=== PATIENT | female | born 1995 | race Caucasian/White ===

== ENCOUNTER 2017-11-25 20:08 | Emergency (ER) | payer MEDICAID ==
--- NOTE | 2017-11-25 21:47 | ED ---
GI/ HPI - HPI Summary HPI Summary: 22-year-old female presents with dysuria and vaginal pain for the past week. She's never had this before. She does not have history of UTI. She denies any lesions. She denies any fevers. She denies any abnormal vaginal discharge. She has not been sexually active for many months. She denies any nausea vomiting. She denies any diarrhea or constipation. She denies any flank pain. She admits to urgency and frequency. - History of Current Complaint Chief Complaint: EDUrogenitalProblems Time Seen by Provider: 11/25/17 20:54 Stated Complaint: UROGENITAL PROBLEMS Hx Last Menstrual Period: 1 week ago Pain Intensity: 7 - Allergy/Home Medications Allergies/Adverse Reactions: Allergies Allergy/AdvReac Type Severity Reaction Status Date / Time Ivory Soap Allergy Rash And Uncoded 11/25/17 20:28 Itching Tide Soap Allergy Rash And Uncoded 11/25/17 20:28 Itching PMH/Surg Hx/FS Hx/Imm Hx Endocrine/Hematology History: Denies: Hx Diabetes, Hx Thyroid Disease Cardiovascular History: Denies: Hx Hypertension Respiratory History: Reports: Hx Asthma Denies: Hx Chronic Obstructive Pulmonary Disease (COPD) GI History: Denies: Hx Ulcer Infectious Disease History: No Infectious Disease History: Denies: Hx Hepatitis, Hx Human Immunodeficiency Virus (HIV), History Other Infectious Disease, Traveled Outside the [place] in Last 30 Days - Family History Known Family History: Negative: Diabetes - Social History Alcohol Use: None Substance Use Type: Reports: None Smoking Status (MU): Light Every Day Tobacco Smoker Type: Cigarettes Review of Systems Negative: Fever Negative: Chest Pain Negative: Shortness Of Breath Negative: Abdominal Pain, Vomiting, Nausea Positive: discharge. Negative: flank pain All Other Systems Reviewed And Are Negative: Yes Physical Exam Triage Information Reviewed: Yes Vital Signs On Initial Exam: Initial Vitals Temp Pulse Resp BP Pulse Ox 99.4 F 108 16 121/80 98 11/25/17 20:20 11/25/17 20:20 11/25/17 20:20 11/25/17 20:20 11/25/17 20:20 Vital Signs Reviewed: Yes Appearance: Positive: Well-Appearing Skin: Positive: Warm, Dry Head/Face: Positive: Normal Head/Face Inspection Eyes: Positive: Normal, Conjunctiva Clear ENT: Positive: Pharynx normal Respiratory/Lung Sounds: Positive: Clear to Auscultation, Breath Sounds Present Cardiovascular: Positive: Normal, RRR Abdomen Description: Positive: Nontender, Soft Bowel Sounds: Positive: Present Pelvic Exam: Positive: Bimanual Exam Normal, No Cerv. Motion Tender, Lesions - genital ulcer painful to touch Musculoskeletal: Positive: Normal Neurological: Positive: Normal Psychiatric: Positive: Normal Diagnostics - Vital Signs Vital Signs Temp Pulse Resp BP Pulse Ox 11/25/17 20:20 99.4 F 108 16 121/80 98 - Laboratory Lab Statement: Any lab studies that have been ordered have been reviewed, and results considered in the medical decision making process. GIGU Course/Dx - Course Course Of Treatment: 22-year-old female presents with dysuria and vaginal pain for the past week. She's never had this before. She does not have history of UTI. She denies any lesions. She denies any fevers. She denies any abnormal vaginal discharge. She has not been sexually active for many months. She denies any nausea vomiting. She denies any diarrhea or constipation. She denies any flank pain. She admits to urgency and frequency. On exam has also on the genitals. Most consistent with HSV. We'll treat with Valtrex. Shows a UTI. We'll treat with Cipro. Told if develops fever on antibiotic after 2 days or persistent vomiting to return to ED. Patient understands agrees with plan. - Diagnoses Differential Diagnoses - Female: Herpes, STD, Urinary Tract Infection Provider Diagnoses: Genital lesion, female, UTI (urinary tract infection) Discharge - Sign-Out/Discharge Documenting (check all that apply): Discharge/Admit/Transfer - Discharge Plan Condition: Good Disposition: HOME Prescriptions: Ciprofloxacin TAB* [Cipro 500 MG TAB*] 500 mg PO BID #9 tab ValACYclovir (*) [Valtrex 1 GM(*)] 1 gm PO BID #19 tab Patient Education Materials: Genital Herpes Simplex (ED), Urinary Tract Infection in Women (ED) Referrals: No Primary Care Phys,NOPCP [Primary Care Provider] - Additional Instructions: take valacyclovir twice a day for 10 days take antibiotic twice a day for 5 days Drink plenty of fluids Take tyenlol or ibuprofen every 6 hours for pain Return to ED if develop any new or worsening symptoms - Billing Disposition and Condition Condition: GOOD Disposition: HOME
[2017-11-25 21:54] LABS: Urine Appearance Cloudy; Urine Blood 1+ (Negative); Urine Color Yellow; Urine Ketones Negative (Negative); Urine Protein 1+(30 mg/dL) (Negative); Urine Urobilinogen Negative (Negative)
[2017-11-25] MEDS ORDERED: Ciprofloxacin TAB* 500 MG PO ONE (21:55)
[2017-11-25] MEDS ORDERED: ValACYclovir (*) 1 GM TAB PO ONE (22:00)
[2017-11-25 22:10] VITALS: BP 112/63
--- NOTE | 2017-11-27 09:20 | PN ---
Progress Note - Progress Note Date of Service: 11/25/17 Note: Patient seen in the ER for 11/25/17 for pelvic pain. Vaginal cultures were obtained time. Cultures today are positive for Gardnerella and Trichomonas. Attempted to call patient at [phone] but she was not home. I left message with patient's mother to return call to the emergency department.
--- NOTE | 2017-11-28 08:36 | ED ---
Progress - Progress Note Progress Note: Patient's urine culture reveals 10-25,000 strep group B and 50-75,000 normal fredi. Pt rx'd cipro, flagyl and valcyclovir for HSV. With low counts, no further treatment necessary at this time. May stop cipro. Patient aware. Course/Dx - Course Course Of Treatment: 22-year-old female presents with dysuria and vaginal pain for the past week. She's never had this before. She does not have history of UTI. She denies any lesions. She denies any fevers. She denies any abnormal vaginal discharge. She has not been sexually active for many months. She denies any nausea vomiting. She denies any diarrhea or constipation. She denies any flank pain. She admits to urgency and frequency. On exam has also on the genitals. Most consistent with HSV. We'll treat with Valtrex. Shows a UTI. We'll treat with Cipro. Told if develops fever on antibiotic after 2 days or persistent vomiting to return to ED. Patient understands agrees with plan. - Diagnoses Provider Diagnoses: Genital lesion, female, UTI (urinary tract infection) Discharge - Sign-Out/Discharge Documenting (check all that apply): Post-Discharge Follow Up - Discharge Plan Condition: Good Disposition: HOME Prescriptions: Ciprofloxacin TAB* [Cipro 500 MG TAB*] 500 mg PO BID #9 tab metroNIDAZOLE [Flagyl 500 MG TAB] 500 mg PO BID #20 tab ValACYclovir (*) [Valtrex 1 GM(*)] 1 gm PO BID #19 tab Patient Education Materials: Genital Herpes Simplex (ED), Urinary Tract Infection in Women (ED) Referrals: No Primary Care Phys,NOPCP [Primary Care Provider] - Additional Instructions: take valacyclovir twice a day for 10 days take antibiotic twice a day for 5 days Drink plenty of fluids Take tyenlol or ibuprofen every 6 hours for pain Return to ED if develop any new or worsening symptoms - Billing Disposition and Condition Condition: GOOD Disposition: HOME
== END 2017-11-25 22:10 | disposition home or self-care (01) ==
LOC: ED 20:08
DX: N39.0 Urinary tract infection, site not specified (principal); R30.0 Dysuria; N90.89 Other specified noninflammatory disorders of vulva and perineum
CPT/HCPCS: 81003; 81015; 87077; 87086; 87480; 87491; 87510; 87529; 87591; 87660; 87798; 99282; A9270-GY

== ENCOUNTER 2019-04-06 13:51 | Emergency (ER) | payer OTHER ==
--- NOTE | 2019-04-06 14:52 | ED ---
Back Pain - HPI Summary HPI Summary: 23 year old F presenting to [facility] complains of back pain located at her bilateral flanks and at both sides of her upper back rated 10/10 in severity since Monday04/03/19. No trauma/injury to the back. Patient states she was at home when the pain started. Patient states she was unable to get out of bed today. Patient denies urinary and fecal dysfunction. Symptoms aggravated by walking and movement. Symptoms alleviated by taking a hot bath, which provided relief for one hour. Patient states she took Tylenol with no relief. Patient states she is 7.5 months and due on June 13, 2019. Patient states that she has not had any complications during this . /A0. Patient states she lives with her boyfriend and step daughter. 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 - History of Current Complaint Chief Complaint: EDBackInjuryPain Stated Complaint: BACK PAIN , Time Seen by Provider: 04/06/19 14:42 Hx Obtained From: Patient Onset/Duration: Lasting Days - 3, Still Present Onset/Duration: Started Days Ago - 3, Still Present Timing: Constant Severity Currently: Severe Pain Intensity: 10 Pain Scale Used: 0-10 Numeric Aggravating Symptom(s): Movement, Walking Alleviating Symptom(s): Nothing Associated Signs And Symptoms: Positive: Negative - urinary/fecal dysfunction - Allergies/Home Medications Allergies/Adverse Reactions: Allergies Allergy/AdvReac Type Severity Reaction Status Date / Time Ivory Soap Allergy Rash And Uncoded 04/06/19 13:57 Itching Tide Soap Allergy Rash And Uncoded 04/06/19 13:57 Itching PMH/Surg Hx/FS Hx/Imm Hx Endocrine/Hematology History: Denies: Hx Diabetes Cardiovascular History: Denies: Hx Hypertension Respiratory History: Reports: Hx Asthma Denies: Hx Chronic Obstructive Pulmonary Disease (COPD) Infectious Disease History: No Infectious Disease History: Denies: Hx Hepatitis, Hx Human Immunodeficiency Virus (HIV), History Other Infectious Disease, Traveled Outside the in Last 30 Days - Family History Known Family History: Negative: Diabetes - Social History Alcohol Use: None Hx Substance Use: No Substance Use Type: Reports: None Hx Tobacco Use: Yes Smoking Status (MU): Light Every Day Tobacco Smoker Type: Cigarettes Review of Systems Gastrointestinal: Negative - fecal dysfunction Genitourinary: Negative - urinary dysfunction Positive: Other - back pain located at her bilateral flanks and at both sides of her upper back All Other Systems Reviewed And Are Negative: Yes Physical Exam - Summary Physical Exam Summary: VITAL SIGNS: Reviewed. GENERAL: Patient is a well-developed and nourished FEMALE who is lying comfortable in the stretcher. Patient is not in any acute respiratory distress. HEAD AND FACE: No signs of trauma. No ecchymosis, hematomas or skull depressions. No sinus tenderness. EYES: PERRLA, EOMI x 2, No injected conjunctiva, no nystagmus. EARS: Hearing grossly intact. Ear canals and tympanic membranes are within normal limits. MOUTH: Oropharynx within normal limits. NECK: Supple, trachea is midline, no adenopathy, no JVD, no carotid bruit, no c- spine tenderness, neck with full ROM. CHEST: Symmetric, no tenderness at palpation. LUNGS: Clear to auscultation bilaterally. No wheezing or crackles. CVS: Regular rate and rhythm, S1 and S2 present, no murmurs or gallops appreciated. ABDOMEN: Soft, non-tender. No signs of distention. No rebound, no guarding, and no masses palpated. Bowel sounds are normal. BACK: Paraspinal muscle tenderness in T spine and proximal L spine EXTREMITIES: FROM in all major joints, no edema, no cyanosis or clubbing. NEURO: Alert and oriented x 3. No acute neurological deficits. Speech is normal and follows commands. SKIN: Dry and warm. Triage Information Reviewed: Yes Vital Signs On Initial Exam: Initial Vitals Temp Pulse Resp BP Pulse Ox 98.8 F 122 16 136/85 96 04/06/19 13:53 04/06/19 13:53 04/06/19 13:53 04/06/19 13:53 04/06/19 13:53 Vital Signs Reviewed: Yes Diagnostics - Vital Signs Vital Signs Temp Pulse Resp BP Pulse Ox 04/06/19 13:53 98.8 F 122 16 136/85 96 - Laboratory Lab Statement: Any lab studies that have been ordered have been reviewed, and results considered in the medical decision making process. Back Pain Course/Dx - Course Assessment/Plan: The patient is 7.5 months , therefore, I am unable to obtain any x-rays. The patient doesnt have any urinary or fecal dysfunction. The tenderness is only along the paraspinal muscle area, there is no vertebral tenderness. It looks like it is more muscular skeletal pain. The patient was given one Tylenol/[place] and the symptoms improved. She requests an excuse from work for the next 3 days. The patient is ambulating, she is able to bend without significant discomfort. The patient denies any abdominal cramping, denies any vaginal discharge, and denies any vaginal bleeding. The patient denies any urinary or fecal dysfunction. Therefore, the patient will be discharged home with follow-up with OB. She was recommended to return to the emergency department if she develops any other symptoms. The patient will be given Tylenol. - Diagnoses Provider Diagnoses: Back pain Discharge ED - Sign-Out/Discharge Documenting (check all that apply): Patient Departure - Discharge Patient Received Moderate/Deep Sedation with Procedure: No - Discharge Plan Condition: Stable Disposition: HOME Patient Education Materials: Back Pain (ED) Forms: *Work Release Referrals: [facility] [Outside] - 3 Days Additional Instructions: Use warm compresses. Use over the counter patches. Follow up with your primary care provider in 3 days. Return to the Emergency Department for new or worsening symptoms. - Billing Disposition and Condition Condition: STABLE Disposition: Home - Attestation Statements Document Initiated by Scribe: Yes Documenting Scribe: Magdalene Noriega Provider For Whom Raman is Documenting (Include Credential): Clifton Francois MD Scribe Attestation: Magdalene Mark, scribed for Clifton Francois MD on 04/06/19 at 1849. Scribe Documentation Reviewed: Yes Provider Attestation: The documentation as recorded by the Magdalene montes accurately reflects the service I personally performed and the decisions made by me, Clifton Francois MD Status of Scribe Document: Viewed
[2019-04-06 15:24] VITALS: BP 116/71
== END 2019-04-06 15:23 | disposition home or self-care (01) ==
LOC: ED 13:51
DX: M54.9 Dorsalgia, unspecified (principal); J45.909 Unspecified asthma, uncomplicated; F17.210 Nicotine dependence, cigarettes, uncomplicated
CPT/HCPCS: 99282

== ENCOUNTER 2019-06-12 19:48 | Inpatient (IN) | payer OTHER ==
[2019-06-12] MEDS ORDERED: Glycerin ADULT SUPP PR PRN (19:49)
[2019-06-12] MEDS ORDERED: Witch Hazel PAD* JAR TOPICAL PRN (19:49)
[2019-06-12] MEDS ORDERED: Dibucaine 1% 28.35 GM TUBE PR PRN (19:49)
[2019-06-12] MEDS ORDERED: Acetaminophen TAB* 325 MG PO PRN (19:49)
--- NOTE | 2019-06-12 19:54 | PROCNOTE ---
[facility] OB: Delivery Note - Nursery Level of Nursery: Regular/Bedside - Perineum Perineal Injury: None/Intact Perineal Repair: None - called to auto at 1 st floor entrance for delivery of baby. When arrived bay was in Mom's arms. Nursing had assisted with the of baby .Baby vigorous with excellent color and tone. I helped move mom to stretcher . {Pt brought to Labor and delivery and Cord was cut. cord blood obtained. Placenta delivered with maternal efforts with ease. perineum intact uterus firm .
[2019-06-12] MEDS ORDERED: OXYTOCIN* 10 UNITS/ML 1 ML VIAL IM ONE (19:55)
[2019-06-12] MEDS ORDERED: Lactated Ringers 1000 ML Bag* 1,000 ML IV SCH ×2 (20:00→22:00)
[2019-06-12] MEDS ORDERED: Simethicone TAB* 80 MG TAB.CHEW PO SCH (21:00)
[2019-06-12] MEDS ORDERED: Buffered Lidocaine 1% SYRIN* 1 ML/SYRINGE INTRADERM ONE (21:18)
--- NOTE | 2019-06-12 21:28 | HP ---
General Information - Reason for Visit Precipitous delivery in [facility] - General Information Maternal Age: 23 Grav: 2 Para: 1 SAB: 0 IEA: 0 Estimated Due Date: 06/11/19 Determined By: Early Ultrasound Gestational Age in Weeks/Days: 40 07/23 Maternal Blood Type and Rh: A Negative - Results this Serology/RPR Result: Non-Reactive Rubella Result: Non-Immune HBsAg Result: Negative HIV Result: Negative GBS Culture Result: Negative Past Medical History Delivery History: Hx Uncomplicated Vaginal Delivery Pertinent Past Medical History: See Records - anxiety/ depression, tobacco use Pertinent Past Surgical History: None Pertinent Family History: Non-Contributory - Antepartal Records Antepartal Records: Reviewed, Complicated by: - tobacco use Review of Systems Constitutional: Uncomfortable CV Complaint: No Respiratory: Shortness of Breath: No Gastrointestinal: No Nausea/Vomiting Genitourinary: Leaking Fluid, No Dysuria Musculoskeletal: Contractions Neurological: No Headache - Comments Pt delivered in the parkin lot Exam Allergies/Adverse Reactions: Allergies soap Allergy (Verified 06/12/19 20:14) Rash And Itching IVORY SOAP & TIDE SOAP BP- 124/83, P-101, T-98.6, R-18 - Measurements Height: 5 ft 3 in Pre- Weight: 79.379 kg - Exam Breast: Breast Exam Deferred CVA: No CVA Tenderness Extremities: No Edema Heart: Normal Rhythm/Heart Sounds HEENT: No Significant Findings Lungs: Clear Bilaterally - some congestion Rectal: Rectal Exam Deferred Reflexes: DTR 2+ Thyroid: No Thyromegaly - Abdominal Exam Abdomen Exam: Non-Tender - Ultrasound/Biophysical Profile Ultrasound Status: Not Done Targeted Exam Findings See L&D Outpatient Visit Provider Note for Findings: N/A Estimated Weight: [facility] Cervical Exam: Complete EFM Findings - External Monitor Findings External Monitor Findings Comment: no EFM, delivered in [facility] Assessment/Plan - Assessment Pt s/p precipitous delivery over intact perineum. Pt comfortable and stable.
[2019-06-12] MEDS: Docusate CAP* 100 MG PO SCH (21:53)
[2019-06-13] MEDS: Ibuprofen TAB* 600 MG PO SCH ×2 (01:38→08:30)
[2019-06-13 06:07] LABS: ABS Basophils 0.1 10^3/ul (0-0.2); ABS Eosinophils 0.1 10^3/ul (0-0.6); ABS Lymphocytes 2.3 10^3/ul (1.0-4.8); ABS Neutrophils 10.9 10^3/ul (1.5-7.7); Eosinophil % 0.6 %; Hematocrit 40 % (35-47); Hemoglobin 13.9 g/dL (12.0-16.0); Lymphocyte % 16.1 %; Mean Corpuscular HGB Conc 35 g/dL (31-36); Mean Corpuscular Hemoglobin 33 pg (27-31); Mean Corpuscular Volume 94 fL (80-97); Mean Platelet Volume 10.2 fL (7.4-10.4); Platelet Count 212 10^3/uL (150-450); Red Blood Count 4.29 10^6 /uL (3.70-4.87); Red Cell Distribution Width 13 % (10-15); White Blood Count 14.3 10^3/uL (3.5-10.8)
[2019-06-13] MEDS: Docusate CAP* 100 MG PO SCH (08:30)
[2019-06-13 08:50] VITALS: BP 131/77
[2019-06-13] MEDS ORDERED: medroxyPROGESTERone ACETATE (DEPOT)* 150 MG/ML 1 ML IM ONE (08:51)
[2019-06-13] MEDS ORDERED: Ferrous Gluconate TAB* 324 MG TAB PO SCH (09:00)
== END 2019-06-13 14:30 | disposition home or self-care (01) | DRG 560 ==
LOC: MCHOBOUT 19:48 → MCHOB 19:50
PROVIDERS: ADMIT Advanced Practice Midwife; ATTEND Advanced Practice Midwife
PROC: 10E0XZZ Delivery of Products of Conception, External Approach (ICD-10-PCS; principal; 2019-06-12)
DX: O62.3 Precipitate labor (principal); Z37.0 Single live birth; O99.52 Diseases of the respiratory system complicating childbirth; O48.0 Post-term pregnancy; O99.334 Smoking (tobacco) complicating childbirth; F17.200 Nicotine dependence, unspecified, uncomplicated; J45.909 Unspecified asthma, uncomplicated; Z3A.40 40 weeks gestation of pregnancy; Z67.11 Type A blood, Rh negative; Z91.048 Other nonmedicinal substance allergy status
CPT/HCPCS: 36415; 85025; A9270-GY; J1050